=== PATIENT | female | born 1990 | race Caucasian/White ===

== ENCOUNTER → 2022-05-31 | Outpatient (CLI) | payer OTHER, SELFPAY ==
[2022-05-31 00:22] LABS: Mucous, Urine 0 SEEN /hpf (<or=2+)
[2022-05-31 00:43] LABS: Color, Urine Yellow (Yellow); Glucose, Dipstick Normal (Normal); Ketone-Dipstick Negative (Negative); Leukocyte Esterase-Dipstick 500 /ul (Negative); Nitrite-Dipstick Negative (Negative); Occult Blood-Urine 250 /ul (Negative); Protein-Dipstick 15 mg/dl (Negative); Specific Gravity, Urine 1.015 (1.002-1.030); Urine Bilirubin Dipstick Negative (Negative); Urine Clarity Sl. Cloudy (Clear); Urine Urobilinogen Normal (Normal); Urine pH 6.5 (5.0 - 8.0)
[2022-05-31 01:44] LABS: Squamous Epithelial Cells - UA 5-10 SEEN /hpf (5-10)
[2022-05-31 01:45] LABS: Red Blood Cells-Urine 5-10 SEEN /hpf (0-5); White Blood Cells 10-25 SEEN /hpf (0-5)
[2022-05-31 01:46] LABS: Bacteria 1+ /hpf (None Seen)
== END | disposition home or self-care (01) ==
PROVIDERS: Referring Provider Physician Assistant Surgical; Visit Provider Physician Assistant Surgical
DX: N39.0 Urinary tract infection, site not specified (principal)
CPT/HCPCS: 81001; 87086; 87088

== ENCOUNTER → 2023-01-15 | Outpatient (CLI) | payer OTHER, SELFPAY ==
[2023-01-15 12:46] LABS: Absolute Lymphocyte Count 1.84 X10^3/uL (0.83-4.51); Absolute Neutrophil Count 2.8 X10^3/uL (2.0-7.7); Basophil# 0.04 X10^3/uL; Basophil% 0.8 % (0-1); Eosinophil# 0.09 X10^3/uL; Eosinophils% 1.8 % (0-5); Hematocrit 37.9 % (37-47); Hemoglobin 12.2 g/dL (12.0-15.0); Lymphocyte # 1.84 X10^3/ul (0.83-4.51); Lymphocyte % 36.3 % (19-41); Mean Corp Hgb Conc 32.2 g/dL (32-36); Mean Corpuscular Hgb 27.4 pg (27.0-32.0); Mean Platelet Vol. 10.5 fl (6.2-12.0); Monocyte# 0.34 X10^3/uL; Monocyte% 6.7 % (0-10); NRBC Flagged by Analyzer 0 % (0-5); Neutrophil # 2.75 X10^3/uL (2.7-7.7); Neutrophil % 54.2 % (47-70); Platelet Count 310 K/mm3 (150-450); RBC Distribution Width CV 14.5 % (11.6-14.6); RBC Distribution Width SD 44.6 fl (35.1-43.9); Red Blood Count 4.46 M/mm3 (4.2-5.4); White Blood Count 5.1 K/mm3 (4.4-11.0)
[2023-01-15 12:58] LABS: ALB/GLOB Ratio 0.9 RATIO (0.9-2.4); AST(SGOT) 22 U/L (15-37); Alanine Aminotransfer ALT/SGPT 24 U/L (13-56); Albumin, Serum 3.5 g/dL (3.2-5.0); Alkaline Phosphatase 75 U/L (45-117); BUN 11 mg/dL (7-18); BUN/Creat Ratio 17.4 RATIO (10-20); Calcium,Total 8.3 mg/dL (8.5-10.1); Chloride 110 mmol/L (98-107); Cholesterol 207 mg/dL (200); Creatinine, Serum 0.63 mg/dL (0.55-1.02); EST Glomerular Filtration Rate 115 mL/min (>60); Est Glom Filt Rate - Afr Amer 140 mL/min (>60); Globulin 3.9 g/dL (2.2-4.2); Glucose 89 mg/dL (74-106); Protein, Total 7.4 g/dL (6.4-8.2); Sodium Level 140 mmol/L (136-145); Triglycerides 146 mg/dL
[2023-01-15 12:59] LABS: Anion Gap 7 (5-15); High Density Lipoprotein 42 mg/dL; Thyroid Stim Hormone (TSH) 1.05 uIU/mL (0.358-3.74)
[2023-01-15 13:23] LABS: Hemoglobin A1c 5.1 % (3.8-5.6)
== END | disposition home or self-care (01) ==
PROVIDERS: PCP Family Medicine
DX: Z13.228 Encounter for screening for other metabolic disorders (principal)
CPT/HCPCS: 80053; 82465; 83036; 83718; 84443; 84478; 85025

== ENCOUNTER 2024-09-09 06:04 | Day surgery (SDC) | payer SELFPAY ==
[2024-08-10 12:58] LABS: Hemoglobin 12.1 g/dL (12.0-15.0); Mean Corp Hgb Conc 32.7 g/dL (32-36); Mean Corpuscular Hgb 27.1 pg (27.0-32.0); Mean Corpuscular Volume 82.8 fL (81-99); Mean Platelet Vol. 9.5 fl (6.2-12.0); Platelet Count 314 K/mm3 (150-450); RBC Distribution Width CV 14.6 % (11.6-14.6); Red Blood Count 4.47 M/mm3 (4.2-5.4); White Blood Count 5.8 K/mm3 (4.4-11.0)
[2024-08-10 13:37] LABS: Anion Gap 6 (5-15); BUN 10 mg/dL (7-18); BUN/Creat Ratio 15.1 RATIO (10-20); Calcium,Total 9.2 mg/dL (8.5-10.1); Chloride 110 mmol/L (98-107); Creatinine, Serum 0.66 mg/dL (0.55-1.02); EST Glomerular Filtration Rate 108 mL/min (>60); Est Glom Filt Rate - Afr Amer 131 mL/min (>60); Glucose 95 mg/dL (74-106); Potassium 4.5 mmol/L (3.5-5.1); Sodium Level 139 mmol/L (136-145)
[2024-09-09] VITALS (10 sets, daily range): BP systolic 107–134; BP diastolic 64–84; PULSE 86–107; RESP 16–18; TEMP 2.5–36.7; O2SAT 98–100; BMI 27.6
[2024-09-09] MEDS: 0.9% Normal Saline (1000mL) 1,000 ML 15 ML IV (06:51)
--- NOTE | 2024-09-09 07:15 | PRE.ANES_ITS ---
ASA Classification* ASA Classification ASA Classification: 2 Assessment & Plan Anesthesia* Anesthesia Assessment Anesthesia Assessment: Discussed sedation and/or anesthesia options, risks, benefits, and alternatives with patient/parents/legal guardian/POA. Questions invited. The patient/parents/legal guardian/POA seems to understand and agrees to proceed with anesthesia plan. Reviewed the physical assessment, medical history, allergy history and patient home medications list prior to surgery/procedure/anesthetic and documented any changes. Performed airway and anesthesia risk assessments. Anesthesia Type Anesthesia Type: General History Source History Obtained from:: Patient and Chart Anesthesia Focused Assessment* Temperature: 97.0 F Pulse Rate: 86 Blood Pressure: 122/84 Respiratory Rate: 18 Pulse Ox: 98 Oxygen Delivery Method: Room Air Airway Assessment Mouth opens: >3 cm Mallampati Score: IV Teeth Condition: Lower (Patient has a permanent wire retainer behind her lower teeth. It is tight.) Neck Range of motion (ROM): Full ROM Focused Labs Anesthesia Preop lab: CBC WBC 5.8 K/mm3 (4.4-11.0) 08/10/24 12:45 RBC 4.47 M/mm3 (4.2-5.4) 08/10/24 12:45 Hgb 12.1 g/dL (12.0-15.0) 08/10/24 12:45 Hct 37.0 % (37-47) 08/10/24 12:45 Plt Count 314 K/mm3 (150-450) 08/10/24 12:45 CHEMISTRY Potassium 4.5 mmol/L (3.5-5.1) 08/10/24 12:45 Sodium 139 mmol/L (136-145) 08/10/24 12:45 BUN 10 mg/dL (7-18) 08/10/24 12:45 Creatinine 0.66 mg/dL (0.55-1.02) 08/10/24 12:45 Glucose 95 mg/dL (74-106) 08/10/24 12:45 TSH 1.05 uIU/mL (0.358-3.74) 01/15/23 10:11 COAG Urine Test Negative Negative 09/09/24 06:15 Tst Clinic Negative 05/30/22 14:16 Pre-Assessment Diagnosis/Proposed Procedure Planned Operative Procedure(s): BILAT BREAST AUGMENTATION WITH IMPLANTS Anesthesia History 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 When Was Last Pacemaker Check QUESTION #4 FULL TEXT: You/Your Family Experience fever (hyperthermia) with Anesthesia Last Oral Intake Last Oral intake: Last Oral Intake NPO since 18:00 09/09/24 06:36 Meds taken in AM with sips of No 09/09/24 06:36 water? Meds patient instructed to take am of surgery PONV PONV - electrical engineering teacher: PONV - electrical engineering teacher Female Yes 09/01/24 14:02 HX of Motion Sickness No 09/01/24 14:02 HX of N/V After Surgery No 09/01/24 14:02 Non-Smoker Yes 09/01/24 14:02 Duration of Surgery greater Yes 09/01/24 14:02 than 60 minutes Number of Risk Factors 3 09/01/24 14:02 PONV Score Moderate Risk 09/01/24 14:02 Height & Weight Height & Weight: Anesthesia: Height & Weight Height 5 ft 7 in 09/09/24 06:36 Weight: 80 kg 09/09/24 06:36 Body Mass Index (BMI) 27.6 09/09/24 06:36 Respiratory Assessment Respiratory Assessment - electrical engineering teacher: Respiratory Tract Infection Hx - electrical engineering teacher Hx Respiratory Tract Infection No 09/01/24 14:02 STOP Sleep Apnea STOP Sleep Apnea - electrical engineering teacher: STOP Sleep Apnea - electrical engineering teacher Hx Hypertension No 09/01/24 14:02 Hx Sleep Apnea No 09/01/24 14:02 CPAP BIPAP Do you snore loudly (louder No 09/01/24 14:02 than talking or can be heard Do you often feel tired/ No 09/01/24 14:02 fatigued/ sleepy during daytime? Has anyone observed you stop No 09/01/24 14:02 breathing during sleep? STOP Results Negative 09/01/24 14:02 QUESTION #5 FULL TEXT : Do you snore loudly (louder than talking or can be heard through closed doors)? Tobacco Use History Tobacco Use History - electrical engineering teacher: Tobacco Use History - electrical engineering teacher Tobacco Use Smoking Status Never smoker 09/01/24 14:02 Hx Tobacco Use No 09/01/24 14:02 Years Smoking Packs Smoked per Day Smoking Cessation Date was within the last 15 years Hx Smoking Cessation Date Hx Smoking Cessation Counseling Hematologic Medial History Hematologic Hx - electrical engineering teacher: Hematologic Medical Hx - penciller Hx of Blood Transfusion No 09/01/24 14:02 Hx of Transfusion in last 3 No 09/01/24 14:02 Months Date of Last Transfusion (if within last 3 months) Ever experience any problems No 09/01/24 14:02 with transfusion(s)? Specify any problems Hx of Preganancy in last 3 No 09/01/24 14:02 Months Nurse Filling Out Transfusion DSCHRIBER 09/01/24 14:02 & Questions: Date: 09/01/24 09/01/24 14:02 Time: 14:03 09/01/24 14:02 Patient unable to answer at this time (ie. confused, unrespo /Reproduction History /Reproductive History - electrical engineering teacher: /Reproductive Hx- electrical engineering teacher Hx Now No 09/01/24 14:02 Gestational Age (in weeks): EDC: Hx Hx Para Hx Section SAB No 09/01/24 14:02 Active Medications Active Medications: Current Medications Generic Name Dose Route Start Last Admin Trade Name Freq PRN Reason Stop Dose Admin Cefazolin Sodium 2 gm/ N/A 20 mls @ 400 mls/hr 09/09/24 07:30 IV 09/09/24 07:32 PREOP ONE Sodium Chloride 1,000 mls @ 15 mls/hr 09/09/24 06:15 09/09/24 06:51 IV 09/14/24 19:34 15 mls/hr .Q48H MEAGAN Administration Protocol [facility] Medical History Alcohol use History of shingles Migraine headache Injury of head and neck Non-smoker Anemia Home Medications ?Medication ?Instructions ?Recorded ?Last Taken ?Type cephalexin 500 mg capsule 500 mg PO BID #14 caps 08/17/24 Unknown Rx Allergy/AdvReac Type Severity Reaction Status Date / Time No Known Allergies Allergy Verified 09/09/24 06:32 Family History Uncle Alcoholic Mother Anemia Sister Anemia Aunt Breast cancer Surgical History History of tonsillectomy H/O rhinoplasty H/O dilation and curettage Social History Smoking Status: Never smoker Review of Systems (Anesthesia) ROS Narrative System reviewed and no additional complaints, except as documented.
[2024-09-09] MEDS: Cefazolin 2 GM in Syringe IV (07:30)
--- NOTE | 2024-09-09 07:38 | PCM.HP.BLA ---
History and Physical Date of Admission: 09/09/24 The patient is examined and there are no changes to the H&P of 09/07/24. Informed consent obtained for bilateral breast augmentation. She is marked in the holding area prior to surgery. Assessment & Plan Assessment/Plan (1) Encounter for cosmetic surgery: PLAN: Plan for breast augmentation
[2024-09-09] MEDS: Gentamicin 80 MG/2 ML Vial (08:28)
[2024-09-09] MEDS: Lidocaine 1% /Epi 1:100 (20ml) 20 ML Vial ×2 (09:19→09:20)
[2024-09-09] MEDS: Bupivacaine 0.25% 30 ML Vial (10:55)
--- NOTE | 2024-09-09 11:03 | DCINST_ITS ---
Discharge Instructions Dressing / Incision Additional Dressing/Incision Instructions:: Follow the instructions given in the office. Keep your back elevated. Avoid excess use of your arms. Follow Up Care Please Follow Up With: Alison Block MD When: In 1 week Test Results: Test results from this visit will be discussed in further detail at your follow- up appointment, if applicable. Discharge Plan Admission Attending Provider: Alison Block Primary Care Provider: Anil Cristina Instructions Print Language: Belarusian Discharge Orders/Prescriptions Prescriptions: No Action cephalexin 500 mg capsule 500 mg PO BID Qty: 14 0RF Patient Comments: DAYS PRIOR TO SURGERY Referrals / Follow Up: Anil Cristina MD [Primary Care Provider] - Disposition Disposition (needs filled in before D/C Order can be placed): Home, Self Care
--- NOTE | 2024-09-09 11:08 | PCM.OPRPT ---
Problems Associated Problem List Diagnoses (1) Encounter for cosmetic surgery: Operative Report (Standard) Operative Information Date of Procedure: 09/09/24 Pre-Operative Diagnosis: Bilateral mammary hypoplasia Post-Operative Diagnosis: Same Surgery/Procedure Performed: Bilateral breast augmentation (R-520cc; L-470cc) janitor caretaker: Yes Detective Sergeant: Portia Wharton Tasks completed by airline pilot/first officer: Retracting Type of Anesthesia: General RN Documented Start/Stop Times: Operation Date: 09/09/24 07:30 Case Time Into Pre-Op 09/09/24 06:09 Out of Pre-Op 09/09/24 07:25 Anesthesia Start 09/09/24 07:28 Into Room 09/09/24 07:28 Procedure Start 09/09/24 08:04 Procedure End 09/09/24 10:58 Anesthesia End 09/09/24 11:05 Out of Room 09/09/24 11:05 Procedure Start Time: 08:04 Procedure Stop Time: 10:58 Select all DRAINS/GRAFTS/IMPLANTS that apply: Prosthetic device Prosthetic device details: Bilateral breast implants [place] saline moderate + profile (cat #[id number]) Estimated Blood Loss: 25 cc Specimen collected: No Description of surgery: The patient presents today for elective breast augmentation. She has selected her implants prior to the procedure and decides on a saline, moderate plus profile 450-540 cc. An informed consent was obtained. No guarantees were made as to the final size of the implant or the resulting cup size. She is marked in the preop holding area prior to surgery. She is aware that she has asymmetry of the chest wall and tattoo currently. The potential risks and complications of the procedure were reviewed which include but are not exclusive of bleeding, infection, pain, numbness, asymmetry, scar tissue, skin necrosis, the need for further surgery, DVT, and even . The patient is brought to the operating room and placed under general anesthesia in the supine position. The breast and chest are prepped and draped in the usual sterile fashion. We initially began with making a 4 cm incision in the inframammary crease. This dissection is then carried down until the muscular fascia is encountered. The pectoralis major muscle is identified and is noted to be broad and thick. The muscle is split in the direction of its fibers and a inframammary pocket is created through blunt dissection. Inferiorly and laterally, the subcutaneous pocket is created with cautery dissection. When the pocket is found to be of adequate size, it is irrigated with antibiotic solution and checked for meticulous hemostasis. The pocket is then packed with saline damp gauze and identical procedures performed on the opposite side. The implants are prepared on the back table. They are first checked for leaks. With no leaks being found, all air is aspirated from the implant and the implant and tubing are prime with injectable saline. They are then placed in a dilute antibiotic solution until ready for implantation. The pockets are again checked for hemostasis and with this being satisfactory, a light coating of Bam was injected particularly on the muscle fibers that were divided. A strip of Ioban is placed beneath the incision to prevent the implant from contact with the skin and the implant is slid into the submuscular pocket. The implants are then inflated. With the patient noted to have breast and chest wall asymmetry, adjustments were made in the size of the implant. At the conclusion, the symmetry is noted to be satisfactory. She is set up and again symmetry is evaluated and found to be satisfactory. The fill tubes are removed yet left in this pocket to instill Marcaine at the conclusion. The reinforcing plugs are manipulated into the port on the implant. Vicryl sutures that had been placed along the fascia and breast tissue to help reinforce the inframammary crease. The incisions are then closed in 3 layers using strata fix suture with skin being approximated in a subcuticular fashion. 10 cc of quarter percent plain Marcaine are instilled in each pocket and the tubing removed. Marcaine is injected along the incision as well as medial and laterally. Xeroform is placed on the incision along with fluff gauze and she is placed in a surgery bra. A band is placed in the inframammary area to help maintain symmetry. She tolerated the procedure well and was taken to the recovery area in an awakening in stable condition. Needle and sponge counts are correct. Surgical Findings: As above Complications Complications: No Admit VTE Documentation VTE Mechan Device Prophylaxis: SCD's
--- NOTE | 2024-09-09 11:11 | PCM.POST.ANE ---
Anesthesia: Postop Eval I Current Vital Signs Temperature: 36.5 F Pulse Rate: 99 Blood Pressure: 134/70 Respiratory Rate: 18 Pulse Ox: 100 Assessment Airway patent: Yes Spontaneous unlabored respirations: Yes nausea: No Vomiting: No Anesthesia Complication: No Fluid Hydration Crystalloid volume administer (ml): 1,500 Total IV fluid infused: 1,500 Progress Note Anesthesia document: Postop Eval 1 completed: Yes
[2024-09-09] MEDS: Acetaminophen 500 MG Tablet 1000 MG PO (12:24)
--- NOTE | 2024-09-09 21:50 | POSTOPAN2_ITS ---
Anesthesia Postop Eval I Sum Postop Eval Completion status Anesthesia document: Postop Eval 1 completed: Yes Anesthesia Postop Eval I Summary Anesthesia Postop Eval I Summary: Anesthesia Postop Eval I: Assessment Summary Airway patent Yes 09/09/24 11:11 LIDDING MACHINE OPERATOR.CSIR Spontaneous unlabored Yes 09/09/24 11:11 LIDDING MACHINE OPERATOR.CSIR respirations Mental status nausea No 09/09/24 11:11 LIDDING MACHINE OPERATOR.CSIR Vomiting No 09/09/24 11:11 LIDDING MACHINE OPERATOR.CSIR Anesthesia Postop Eval I: Fluid Summary Crystalloid volume administer 1,500 09/09/24 11:11 LIDDING MACHINE OPERATOR.CSIR (ml) Colloids volume administered ( ml) Blood Product volume administered (ml) Total IV fluid infused 1,500 09/09/24 11:11 LIDDING MACHINE OPERATOR.CSIR Anesthesia Postop Eval I: Summary Notes Anesthesia Complication No 09/09/24 11:11 LIDDING MACHINE OPERATOR.CSIR Anesthesia Complication Comment: Post-operative progress note Anesthesia: Postop Eval II Evaluation Mental status: Awake and Calm Pain Level: 1 nausea: No Vomiting: No Complications Anesthesia Complication: No
--- NOTE | 2024-09-09 21:50 | PCM.POSTANE2 ---
Anesthesia Postop Eval I Sum Postop Eval Completion status Anesthesia document: Postop Eval 1 completed: Yes Anesthesia Postop Eval I Summary Anesthesia Postop Eval I Summary: Anesthesia Postop Eval I: Assessment Summary Airway patent Yes 09/09/24 11:11 SHEET [email or web address] Spontaneous unlabored Yes 09/09/24 11:11 SHEET [email or web address].CSIR respirations Mental status nausea No 09/09/24 11:11 SHEET [email or web address].CSIR Vomiting No 09/09/24 11:11 SHEET [email or web address].CSIR Anesthesia Postop Eval I: Fluid Summary Crystalloid volume administer 1,500 09/09/24 11:11 SHEET [email or web address].CSIR (ml) Colloids volume administered ( ml) Blood Product volume administered (ml) Total IV fluid infused 1,500 09/09/24 11:11 SHEET [email or web address].CSIR Anesthesia Postop Eval I: Summary Notes Anesthesia Complication No 09/09/24 11:11 SHEET [email or web address].CSIR Anesthesia Complication Comment: Post-operative progress note Anesthesia: Postop Eval II Evaluation Mental status: Awake and Calm Pain Level: 1 nausea: No Vomiting: No Complications Anesthesia Complication: No
== END 2024-09-09 13:43 | disposition home or self-care (01) ==
LOC: SDC 06:04 → AC 06:05
PROVIDERS: PCP Family Medicine; Referring Provider Plastic Surgery; Visit Provider Plastic Surgery
PROC: (CPT 19325; principal; 2024-09-09 07:10)
DX: Z41.1 Encounter for cosmetic surgery (principal); N64.82 Hypoplasia of breast
CPT/HCPCS: 19325; 00402; 36415; 80048; 85027; J2405